=== PATIENT | male | born 2000 | race African-American/Black ===

== ENCOUNTER 2019-03-29 20:36 | Emergency (ER) | payer OTHER ==
[~2019-03-29] VITALS: Ht 175.3 cm; Wt 81.7 kg
[2019-03-29] MEDS ORDERED: IBUPROFEN 800800 M1 PO (21:32)
[2019-03-29] MEDS ORDERED: NORCO 5-325 TA1 EAC1 PO (21:32)
[2019-03-29 22:01] VITALS: BP 125/80
== END 2019-03-29 22:02 | disposition home or self-care (01) ==
LOC: M.ERS 20:36
DX: M25.422 Effusion, left elbow (principal); M25.522 Pain in left elbow

== ENCOUNTER 2019-05-18 03:50 | Inpatient (IN) | payer OTHER ==
[~2019-05-18] VITALS: Ht 177.8 cm; Wt 84.6 kg
[~2019-05-18 03:50] MED LIST: IBUPROFEN 800800 M1 PO; NORCO 5-325 TA1 EAC1 PO
[2019-05-18 03:52] VITALS: BP 129/75
[2019-05-18 04:20] LABS: ABSOLUTE EOSINOPHILS 0.2 thou/uL (0.0-0.7); ABSOLUTE LYMPHOCYTES 0.7 thou/uL (0.8-5.3); ABSOLUTE MONOCYTES 0.4 thou/uL (0.0-1.2); ABSOLUTE NEUTROPHILS 2.4 thou/uL (1.6-8.1); BASOPHILS 1.1 %; EOSINOPHILS 4.9 %; HEMATOCRIT 44.6 % (42.0-52.0); HEMOGLOBIN 14.8 gm/dL (14.0-18.0); MCH 29.3 pg (26.0-34.0); MCHC 33.1 g/dL (28.0-37.0); MCV 88.6 fL (80.0-100.0); MONOCYTES 11.3 %; MPV 8.7 fl. (7.2-11.1); NUCLEATED RBCS 0 /100WBC; PLATELET COUNT* 178 thou/uL (150-400); POLYS 64.7 %; RBC 5.04 mil/uL (4.50-6.00); RDW-CV 15.3 % (10.5-14.5); WBC 3.7 thou/uL (4.0-11.0)
[2019-05-18 04:48] LABS: CALCIUM 8.4 mg/dL (8.5-10.1); CREATININE 1.1 mg/dL (0.6-1.3)
[2019-05-18 04:53] LABS: ALBUMIN 3.7 g/dL (3.4-5.0); TOTAL BILIRUBIN 0.4 mg/dL (<0.1-1.0); TOTAL PROTEIN 7.2 g/dL (6.4-8.2)
[2019-05-18 08:00] VITALS: BP 108/49
[2019-05-18 08:20] VITALS: BP 124/50
[2019-05-18 11:49] VITALS: BP 123/72
[2019-05-18 16:21] VITALS: BP 106/51
--- NOTE | 2019-05-19 09:28 | EKG ---
[place] [address] ELECTROCARDIOGRAM REPORT Name: HOLLY PAK JR Room: [address] IN [facility].#: [id number] Admission: 05/18/19 Attend Phys: Jun Argueta Discharge: 05/18/19 Date of : 89 Report #: [id number] THIS REPORT FOR: //name// [facility] ED Test Date: 2019-05-18 Test Time: 04:06:48 Pat Name: HOLLY PAK Department: Room: [facility] Gender: M Service Planner: MR : 2000 Requested By: Avani Cox Order Number: [id number] MD: Ronen Quiñones Measurements Intervals [place] Rate: 76 P: 71 NE: 195 QRS: 59 QRSD: 99 T: 37 QT: 388 QTc: 437 Interpretive Statements Sinus rhythm RSR' in V1 or V2, probably normal variant Diffuse ST elevation, consider early repolarization versus pericarditis No previous ECG available for comparison Electronically Signed On 05-19-2019 9:27:50 [employer] STEEP TENDER by Ronen Quiñones [email or web address] <ELECTRONICALLY SIGNED> By: Ronen Quiñones MD, FACC 05/19/19 0927 [id number] Ronen Quiñones MD, FACC /EPI
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
--- NOTE | 2019-05-21 18:57 | EEG ---
[address] [address] EEG STUDY REPORT Name: HOLLY PAK Room: [address]#: [id number] Admission: 05/18/19 Attend Phys: Jun Argueta Discharge: 05/18/19 Date of : [birth year] Report #: [id number] THIS REPORT FOR: //name// CC: JACK physician/ELAINE Metzger DATE OF SERVICE: 05/18/2019 This patient was admitted after seizure. EEG was done by placing the electrode by standard 10-20 system of electrode placement. Both referential and sequential montages were used for recording. Background activity in this patient's EEG is about 11 Hz and 30 microvolt. It was a symmetrical activity. The patient went to sleep that is associated with bilaterally symmetrical sleep spindle, vertex sharp wave, and K complexes. Photic stimulation is unremarkable. Throughout the record, no active epileptiform activity was noted. IMPRESSION: This patient's electroencephalogram does not demonstrate any active epileptiform activity. It might be mentioned that EEG can be normal in a patient with a seizure disorder. Thank you very much for this referral. <ELECTRONICALLY SIGNED> By: Erasmo Motley MD 05/21/19 1857 1736 [id number] Motley MD /nt
== END 2019-05-18 16:30 | disposition left against medical advice (07) | DRG 101 ==
LOC: M.ERS 03:50 → M.2W 06:23 → M.TBA-ER 06:23 → M.2W 08:15
PROVIDERS: Emergency Medicine; ADMIT Family Medicine
DX: R56.9 Unspecified convulsions (principal); S06.0X9A Concussion with loss of consciousness of unspecified duration, initial encounter; F12.90 Cannabis use, unspecified, uncomplicated; Z53.29 Procedure and treatment not carried out because of patient's decision for other reasons; X58.XXXA Exposure to other specified factors, initial encounter; Y93.89 Activity, other specified; Y92.89 Other specified places as the place of occurrence of the external cause; Y99.8 Other external cause status; Z79.899 Other long term (current) drug therapy

== ENCOUNTER → 2019-11-02 | Outpatient (CLI) | payer OTHER ==
[2019-11-02 10:59] LABS: ABSOLUTE EOSINOPHILS 0.3 thou/uL (0.0-0.7); ABSOLUTE LYMPHOCYTES 0.7 thou/uL (0.8-5.3); ABSOLUTE MONOCYTES 0.5 thou/uL (0.0-1.2); ABSOLUTE NEUTROPHILS 2.3 thou/uL (1.6-8.1); BASOPHILS 0.8 %; HEMATOCRIT 45.3 % (42.0-52.0); HEMOGLOBIN 15.1 gm/dL (14.0-18.0); LYMPHOCYTES 17.8 %; MCHC 33.4 g/dL (28.0-37.0); MCV 89.8 fL (80.0-100.0); MONOCYTES 12.4 %; MPV 8.9 fl. (7.2-11.1); NUCLEATED RBCS 0 /100WBC; PLATELET COUNT* 153 thou/uL (150-400); RBC 5.05 mil/uL (4.50-6.00); WBC 3.8 thou/uL (4.0-11.0)
[2019-11-02 11:20] LABS: ALBUMIN 4.1 g/dL (3.4-5.0); CALCIUM 8.1 mg/dL (8.5-10.1); CREATININE 1.1 mg/dL (0.6-1.3); TOTAL BILIRUBIN 0.5 mg/dL (<0.1-1.0); TOTAL PROTEIN 7.6 g/dL (6.4-8.2)
== END ==
LOC: M.LAB 10:32
PROVIDERS: Psychiatry & Neurology Neuromuscular Medicine
DX: E16.2 Hypoglycemia, unspecified (principal); E83.51 Hypocalcemia; R56.9 Unspecified convulsions; Z98.890 Other specified postprocedural states